=== PATIENT | female | born 1990 | race Caucasian/White ===

== ENCOUNTER 2018-02-22 17:18 | Emergency (ER) | payer OTHER ==
[~2018-02-22] VITALS: Wt 63.5 kg
[2018-02-22 18:14] LABS: BASO % 0.2 % (0.0-1.0); EOS # 0.1 10*3/uL (0.0-0.4); EOS % 1.6 % (1.0-4.0); HEMATOCRIT 41.2 % (37.0-47.0); HEMOGLOBIN 13.7 g/dl (12.0-16.0); LYMPH # 1.6 10*3/uL (1.3-4.4); LYMPH % 19.1 % (27.0-41.0); MEAN CELL VOLUME 94.3 fl (81.0-99.0); MEAN CORPUSCULAR HGB 31.4 pg (27.0-31.0); MEAN CORPUSCULAR HGB CONC 33.3 g/dl (33.0-37.0); MONO # 0.6 10*3/uL (0.1-1.0); MONO % 7.3 % (3.0-9.0); NEUT # 5.9 10*3/uL (2.3-7.9); NEUT % 71.6 % (47.0-73.0); PLATELET COUNT AUTOMATED 198 10*3/uL (130-400); RED BLOOD COUNT 4.37 10*6/uL (4.10-5.10); RED CELL DISTRI WIDTH 12.8 % (0-14.5); WHITE BLOOD COUNT 8.3 10*3/uL (4.8-10.8)
[2018-02-22 18:17] LABS: BILIRUBIN NEGATIVE (NEGATIVE); BLOOD NEGATIVE (NEGATIVE); CLARITY CLEAR (CLEAR); COLOR YELLOW (YELLOW); GLUCOSE NEGATIVE (NEGATIVE); KETONE NEGATIVE (NEGATIVE); LEUKO ESTERASE NEGATIVE (NEGATIVE); NITRITE NEGATIVE (NEGATIVE); PH 7.5 (5.0-9.0); UROBILINOGEN 0.2 E.U./dl (0.2-1.0)
[2018-02-22 18:23] LABS: WBC 0-2 wbc/hpf (0-5)
[2018-02-22 18:27] LABS: ALBUMIN 4.1 gm/dl (3.1-4.5); ALKALINE PHOSPHATASE 24 U/L (45-117); BUN 9 mg/dl (7-24); CHLORIDE 107 mmol/L (98-107); CREATININE 0.71 mg/dL (0.55-1.02); LIPASE 149 U/L (73-393); POTASSIUM 3.6 mmol/L (3.5-5.1); SGOT/AST 16 IU/L (3-35); SGPT/ALT 18 U/L (12-78); SODIUM 141 mmol/L (136-145); TOTAL PROTEIN 7.9 gm/dL (6.4-8.2)
[2018-02-22] MEDS ORDERED: PREDNISONE20 M1 PO (20:06)
[2018-02-22] MEDS ORDERED: HYCODAN/HYDROMET5 ML PO (20:06)
[2018-02-22] MEDS ORDERED: XOPENEX1.25 MG/3 INH (20:06)
[2018-02-22] MEDS ORDERED: TESSALON PERLE100 M1 PO (20:06)
== END 2018-02-22 20:31 | disposition home or self-care (01) ==
LOC: ED 17:18
PROVIDERS: Physician Assistant
DX: J40 Bronchitis, not specified as acute or chronic (principal); B34.9 Viral infection, unspecified; Z91.040 Latex allergy status; Z98.890 Other specified postprocedural states

== ENCOUNTER 2018-02-28 20:21 | Inpatient (IN) | payer OTHER ==
[~2018-02-28] VITALS: Ht 160 cm; Wt 60.4 kg
--- NOTE | ~2018-02-28 | PR ---
[place], [place] PROGRESS NOTE [id number] UN[facility] #: [id number] ROOM: 411 DOCTOR: RYAN BURGESS DO BIRTHDATE: [birth year] DOS: 03/03/2018 SUBJECTIVE: The patient was seen and examined at the bedside. The patient denies fevers, chills, abdominal pain, vomiting or any changes in bowel or bladder habits. She does complain of continuing nonproductive cough as well as nausea. She states that she experiences left rib pain when she does cough, but states that her shortness of breath is improving overall. She is requesting discharge today. OBJECTIVE: VITAL SIGNS: Temperature 97.6 degrees Fahrenheit, heart rate 88, respiratory rate 18, blood pressure 115/68, pulse oximetry 98% on room air. GENERAL APPEARANCE: The patient was awake, alert, responsive, cooperative and in no acute distress. HEENT: Head was normocephalic and atraumatic without any lesions or ulcerations noted to the eyes. NECK: Trachea appeared midline. HEART: Positive S1 and S2 sounds were heard, regular rate and rhythm were noted. No murmurs, rubs or gallops were appreciated. Bilateral lower extremities are without pitting edema. PULMONARY: Lungs were clear to auscultation bilaterally. No rales, rhonchi or wheezing was appreciated. ABDOMEN: Soft and nontender to palpation, nondistended, bowel sounds were auscultated. EXTREMITIES: Bilateral lower extremities were without pitting edema. No clubbing, cyanosis or erythema was noted. LABORATORY DATA: CBC from today shows white count at 14.2, hemoglobin at 11.9, hematocrit at 37.3, platelets at 269. Chemistries from today show sodium at 140, potassium at 4.2, chloride at 105, bicarbonate at 28, BUN at 15, creatinine at 0.75, glucose at 73, calcium at 8.6. Serologies for urine legionella antigen, strep pneumo, urinary antigen, viral panel, mycoplasma pneumonia are all pending. In terms of microbiology, blood cultures are without any bacterial growth. Sputum culture has not been obtained. IMAGING: In terms of imaging studies, a chest x-ray obtained today showed grossly clear lungs. IMPRESSION: 1. Acute exacerbation of asthma with consideration for concurrent atypical pneumonia or viral infection. 2. History of tobacco abuse. 3. Leukocytosis, which is improving. 4. Normocytic anemia. PLAN OF MANAGEMENT: From a pulmonary standpoint, the patient is stable for discharge at this time. It is recommended that she be discharged on 3 more days of oral azithromycin as well as a steroid taper. [place], [place] PROGRESS NOTE NAME: ABDI PATEL UNIT #: [id number] ROOM: 411 DOCTOR: RYAN BURGESS DO BIRTHDATE: [birth year] Ryan Burgess DO LAUREL RDZ MD CM:GONZALO [id number] RYAN BURGESS DO 03/03/18 1027 interface
--- NOTE | ~2018-02-28 | PR ---
[place], [place] PROGRESS NOTE NAME: ABDI PATEL UNIT #: [id number] ROOM: 411 DOCTOR: RYAN BURGESS DO BIRTHDATE: [birth year] DOS: 03/02/2018 SUBJECTIVE: The patient was seen and examined at the bedside. She denies any nausea, vomiting, abdominal pain or any changes in bowel or bladder habits. She does report that she feels miserable and attributes this to being on glucocorticoids. She admits to intolerance to heat and sleeping poorly, but overall feels that her breathing status is improved. Her shortness of breath is improved. She is having an occasional cough, which remains nonproductive, but she feels as her current treatments are breaking of her mucus. The patient reports that she wishes to go home. OBJECTIVE: VITAL SIGNS: Temperature at 97.9 degrees Fahrenheit, heart rate at 88, respiratory rate at 18, blood pressure at 121/79, pulse oximetry at 100% on room air. GENERAL APPEARANCE: The patient was awake, alert, responsive, cooperative and in no acute distress. HEENT: Head was normocephalic and atraumatic without any lesions or ulcerations noted to the eyes. NECK: Trachea appeared midline. HEART: Positive S1 and S2 sounds were heard. Regular rate and rhythm were noted. No murmurs, rubs or gallops were appreciated. Bilateral lower extremities were without pitting edema. PULMONARY: Lungs are clear to auscultation bilaterally. No rhonchi, rales or wheezing was heard. ABDOMEN: Soft and nontender to palpation. Bowel sounds were auscultated. Abdomen was nondistended. EXTREMITIES: Bilateral lower extremities were without pitting edema. No clubbing, cyanosis or erythema was noted. LABORATORY DATA: CBC from today shows white count at 17.5, hemoglobin at 11.5, hematocrit at 35.9 and platelets at 279. Chemistries from today show sodium at 143, potassium at 4.4, chloride at 109, bicarbonate at 25, BUN at 12, creatinine at 0.66, glucose at 104 and calcium at 8.5. SEROLOGY: Urine legionella antigen as well as urinary strep pneumo antigen are pending. A viral panel as well as testing for mycoplasma pneumonia antibodies are also pending. MICROBIOLOGY: Blood cultures obtained on admission are pending. A flu swab obtained yesterday was negative for flu A or flu B. IMPRESSION: 1. Acute exacerbation of asthma with consideration for a concurrent atypical pneumonia or viral infection. 2. History of tobacco abuse. 3. Leukocytosis. 4. Normocytic anemia. 5. Lymphopenia. 6. Hyperchloremia. [place], [place] PROGRESS NOTE NAME: ABDI PATEL UNIT #: [id number] ROOM: 411 DOCTOR: RYAN BURGESS DO BIRTHDATE: [birth year] 7. Hyperglycemia. PLAN OF MANAGEMENT: The patient at this time remains on IV Rocephin, IV azithromycin, Mucinex, bronchodilator therapy as well as Solu-Medrol. The frequency of her Solu-Medrol will be decreased to Solu-Medrol 40 mg once a day. Again, serology for urinary Legionella antigen, strep pneumo urinary antigen, viral testing as well as mycoplasma pneumonia antibodies are pending. A repeat chest x-ray as well as a CBC will be ordered for tomorrow as well. Blood cultures and sputum cultures are also pending. Ryan Burgess DO LAUREL RDZ MD CM:PNASH [id number] RYAN BURGESS DO 03/02/18 1241 interface
--- NOTE | ~2018-02-28 | EKG ---
[place], [place] ELECTROCARDIOGRAM REPORT NAME: ABDI PATEL UNIT #: [id number] ROOM: 411 DOCTOR: SHALINI DRAFT REPORT BIRTHDATE: [birth year] [facility] Test Date: 2018-02-28 Test Time: 21:45:23 Pat Name: ABDI PATEL Department: Room: [facility] Gender: F Semaphore Operator: ESTEBAN : 1990 Requested By: ANAHI ODEN Order Number: [id number] Reading MD: New Kelley MD Measurements Intervals [place] Rate: 99 P: 79 [place]: 136 QRS: 72 QRSD: 77 T: 56 QT: 331 QTc: 425 Interpretive Statements Sinus rhythm Electronically Signed On 03-01-2018 11:54:59 PDT by New Kelley MD CM:EKGRPT:ELECTROCARDIOGRAM REPORT 1154 ANAHI ODEN EPIPHANY DRAFT REPORT ANAHI ODEN
--- NOTE | ~2018-02-28 | PR ---
[place], [place] PROGRESS NOTE NAME: ABDI PATEL UNIT #: [id number] ROOM: 411 DOCTOR: KAJAL COTTRELL MD,LAUREL BIRTHDATE: [birth year] DOS: 03/02/2018 SUBJECTIVE: The patient has been seen and examined, [id number] encounter, history was confirmed. Physical examination performed. The review of the assessment and management was personally completed. The patient was still noted symptoms of shortness of breath, which has been decreased. She remains afebrile. Denies any symptoms of chest pain or hemoptysis. Coughing has been subsiding. Denies symptoms of nausea or vomiting. OBJECTIVE: VITAL SIGNS: Shows a normal temperature, respiratory rate 18, heart rate 94, blood pressure 104/59. Pulse ox saturation on room air 98% saturation. HEENT: No acute change. NECK: Supple. CARDIOVASCULAR: S1, S2 is audible. LUNGS: Noted without any wheezing or crackles today. ABDOMEN: Soft, nontender. Bowel sounds present. EXTREMITIES: Noted without any acute edema. LABORATORY DATA: CBC was noted with elevated white cell count for normal white cell count today noted as 17.5. BNP noted as normal. IMPRESSION: Basilar pneumonia, which has been currently treated at this time with an acute exacerbation of bronchial asthma as well. PLAN OF MANAGEMENT: Repeat CBC in the morning to reassess the WBC count trend. Decrease Solu-Medrol 40 mg daily. Bronchodilators to be continued. Continue current antibiotic. No changes. Other supportive therapy, plan of management with the note done by the medical assembler was approved. LAUREL RDZ MD CM:PNTRANS [id number] LAUREL COTTRELL MD 03/02/18 1334 interface
--- NOTE | ~2018-02-28 | CON ---
[place], [place] REPORT OF CONSULTATION NAME: ABDI PATEL UNIT #: [id number] ROOM: 411 DOCTOR: KAJAL COTTRELL MDLAUREL BIRTHDATE: [birth year] DOS: 03/01/2018 PULMONARY CONSULTATION, EVALUATION, AND MANAGEMENT CONSULTATION REQUESTED BY: Hospitalist services. REASON FOR CONSULTATION: Assessment of current abnormal chest x-ray with acute pneumonia. HISTORY OF PRESENT ILLNESS: This is a 27-year-old white female who was independently seen and examined in [id number] encounter, history was confirmed. Physical examination performed. All the labs including radiology data reviewed for the patient's consultation, assessment and management personally completed in today's visit. Note done by the biomedical analytical scientist for this consultation was approved as well. The patient presented to the hospital as she has been noted with symptoms of flu-like symptoms for few days. She presented to the Emergency Room recently and noted with URI symptom and was prescribed steroids, bronchodilators and nebulizer treatment. The patient was sent home. The patient presented back to the Emergency Room after initial assessment on 02/22/2018. She stated that shortness of breath has got significantly worse with increased coughing and chest congestion. The patient came in the Emergency Room for assessment. She has a chest x-ray done and CT of the chest completed as well. She has been currently admitted to the hospital for presumed medical management of pneumonia. She does admit symptoms of wheezing that occurs with exertion with recurrent symptoms as well. Coughing has been noted mostly nonproductive and minimal sputum expectoration at time. Shortness of breath occurred with moderate exertion. Tightness in the chest was noted with nonspecific chest pain. REVIEW OF SYSTEMS: Completed by the biomedical analytical scientist was approved. PAST MEDICAL HISTORY: The patient noted with history of mild intermittent bronchial asthma where she noted at the time of the acute flareup. History of irritable bowel syndrome. PAST SURGICAL HISTORY: 1. Tonsillectomy. 2. Colonoscopy and upper endoscopy. SOCIAL HISTORY: The patient is single. She has 2 children. The patient reported symptoms of tobacco use since early teens at 1/3 of pack of cigarettes per day. History of illicit drug use. The patient does drink alcohol socially. FAMILY HISTORY: Reported history of bronchial asthma in the mother and father. History was noted essentially normal. HOME MEDICATIONS: P.r.n. use of the albuterol sulfate. There was recent prescription of steroids and nebulized bronchodilators and short acting bronchodilators were also reported. [place], [place] REPORT OF CONSULTATION NAME: ABDI PATEL UNIT #: [id number] ROOM: 411 DOCTOR: KAJAL COTTRELL MD,[facility] BIRTHDATE: [birth year] DRUG ALLERGIES: Noted as no known allergies. PHYSICAL EXAMINATION: GENERAL: A 27-year-old female patient who has been currently noted to be awake and alert without any acute distress, sitting on the bed. Height of 5 feet 3 inches, weight of 133 pounds, BMI 23.6. VITAL SIGNS: The patient's temperature noted normal. She was noted on 101.6 degrees Fahrenheit while the patient has been emergency on of this month. The heart rate of the patient noted as 72. The blood pressure is 102/67-114/77. The pulse oxygen saturation of the patient room air was 99% saturation. HEENT: Examination shows head was atraumatic. Eyes nonicterus. NECK: Supple. CARDIOVASCULAR: S1, S2 is audible. LUNGS: There was no wheezing or crackles heard at this time. Mildly diminished bilateral breath sounds. ABDOMEN: Soft and nontender. Bowel sounds present. EXTREMITIES: Without acute edema. SKIN: No lesions or rashes. CENTRAL NERVOUS SYSTEM: The patient noted nonfocal. MUSCULOSKELETAL: Without any acute deformities. LABORATORY DATA: The lactic acid that was done on this patient yesterday was noted as normal. The CBC of the patient yesterday, WBC count 15.2, remaining CBC normal. Blood culture from the of this month, no bacterial growth, final results were reported. CMP of the patient that was done on 02/28/2018 admission, potassium 3.3. Other electrolytes grossly normal. Normal troponin and LFTs. Chest x-ray that was done on 02/22/2018 was noted without any acute infiltration. Chest x-ray that was done on 02/28/2018 does not show any visible pulmonary infiltration, consolidation. CTA of the chest does not show evidence of pulmonary embolism, which was personally reviewed. Small rounded area of ground glass opacity present predominantly in the lower lungs, patient's right and the left lung. There was no lymphadenopathy, pleural effusions or other abnormalities. IMPRESSION: 1. The patient who has been currently admitted to the hospital was noted with symptoms of acute shortness of breath that started with worsening possibly atypical pneumonia would be considered. Other differential of the patient's ground glass opacity would be considered viral infection and others. 2. Acute exacerbation of bronchial asthma and asthmatic bronchitis as well. 3. History of chronic nicotine abuse. PLAN OF MANAGEMENT: The urine for Legionella antigen and strep antigen was ordered. The patient will be also ordered nasopharyngeal wall other viral assessment with that. The influenza viral testing will be redone again for the patient to exclude any viral illness because of the current season. Mycoplasma pneumonia antibody for the patient will be ordered as well. Monitoring of the respiratory status currently. Coverage for atypical infection will be continued. Additional treatment changes will be done for the patient based on the progression of the illness. The cough has been noted nonproductive, so the [place], [place] REPORT OF CONSULTATION NAME: ABDI PATEL UNIT #: [id number] ROOM: 411 DOCTOR: LAUREL LEON MD BIRTHDATE: [birth year] sputum Gram stain culture could not be sent to the lab. Other plan of therapy and management to be continued. Tobacco cessation was addressed with the patient. LAUREL RDZ MD CM:CONSTR:REPORT OF CONSULTATION 1302 03/14/18 0809 interface
--- NOTE | ~2018-02-28 | CON ---
[place], [place] REPORT OF CONSULTATION NAME: ABDI PATEL UNIT #: [id number] ROOM: 411 DOCTOR: RYAN BURGESS DO BIRTHDATE: [birth year] DOS: 03/01/2018 REQUESTING PHYSICIAN: Hospitalist service. REASON FOR CONSULTATION: Asthma exacerbation and pneumonia. HISTORY OF PRESENT ILLNESS: The patient is a 27-year-old female who presented to the ED on 03/01/2018 due to pleuritic pain and ongoing cold symptoms. She states that she has been experiencing cold symptoms for at least the past 2 weekends and due to increased coughing she presented to the Emergency Department initially on 02/22/2018. At that time, she was diagnosed with a viral bronchitis and she was discharged home with prescriptions for Xopenex, prednisone, Tessalon Perles and cough medication. The patient's symptoms failed to improve and due to increased fatigue, she again represented to the ED on the . A chest x-ray obtained in the ED showed no acute cardiopulmonary disease and a subsequent CTA of the chest demonstrated no pulmonary embolism, but it did show multiple ground glass airspace foci to the bilateral lower lobes, favoring a diagnosis from an infectious etiology. The patient was subsequently admitted to the general medical floor with telemetry monitoring for treatment. The patient admits to wheezing and a dry cough. She also is experiencing chest pain with coughing and admits to fevers. She admits to a history of asthma and states that she last followed with an steam table associate as well as a advertising copywriter in [place] and when she was 18 or 19 years old. She currently is not taking any medications for her asthma. The Pulmonary Medicine Service was consulted for evaluation of the patient's asthma exacerbation and suspected pneumonia. PAST MEDICAL HISTORY: Includes asthma, irritable bowel syndrome. PAST SURGICAL HISTORY: Includes history of tonsillectomy, history of EGD, history of colonoscopy. SOCIAL HISTORY: The patient states that she last smoked at the beginning of February and had been smoking one-third pack a day. She denies any use of illicit drugs. She admits to occasional consumption of alcohol. She is currently engaged and has 2 children. FAMILY HISTORY: The patient's mother has a history of asthma and she is age 46, history for the patient's father is unknown. ALLERGIES: LATEX. CURRENT MEDICATIONS: These includes: Levalbuterol nebulizer every 6 hours, IV Rocephin 1 gram daily, IV azithromycin 500 mg daily, guaifenesin 1200 mg every 12 hours. IV Solu-Medrol 40 mg twice a day, Lovenox 40 mg subcutaneous daily, Toradol IV 15 mg every 6 hours as needed for pain. REVIEW OF SYSTEMS: GENERAL: Admits to fevers, denies chills. HEENT: Denies changes to vision changes, changes to hearing, eye pain, ear pain, dysphagia. [place], [place] REPORT OF CONSULTATION NAME: ABDI PATEL UNIT #: [id number] ROOM: 411 DOCTOR: RYAN BURGESS DO BIRTHDATE: [birth year] CARDIOVASCULAR: Admits to chest pain with coughing. Denies palpitations. Denies diaphoresis. RESPIRATORY: Admits to shortness of breath, dyspnea on exertion, wheezing, dry cough. ABDOMINAL: Denies nausea, vomiting, diarrhea, melena or hematochezia. GENITOURINARY: Denies dysuria, hematuria, increased urinary frequency or urgency. NEUROLOGICAL: Denies lightheadedness or dizziness. PSYCHOLOGICAL: Denies anxiety, depression or substance abuse. ENDOCRINE: Admits to intolerance to heat, denies intolerance to cold. SKIN: Denies any new rashes, ulcers, or lesions. PHYSICAL EXAMINATION: VITAL SIGNS: Show temperature at 98.5 degrees Fahrenheit, heart rate at 72, respiratory rate at 18, blood pressure 103/64, pulse oximetry 100% on room air. GENERAL APPERANCE: The patient is awake, alert, responsive, cooperative and in no acute distress. HEENT: Head is normocephalic and atraumatic. There are no lesions or ulcerations to the eyes. NECK: Trachea appears midline. HEART: Positive S1 and S2 sounds were heard, regular rate and rhythm noted. No murmurs, rubs or gallops were appreciated. Bilateral lower extremities were without pitting edema. PULMONARY: Lungs were clear to auscultation bilaterally. No rhonchi, rales or wheezing was heard. ABDOMEN: Soft and nontender to palpation. Bowel sounds are auscultated. Abdomen was nondistended. EXTREMITIES: Bilateral lower extremities were without pitting edema. No clubbing, cyanosis or erythema was noted. NEUROLOGIC: The patient was grossly without any focal neurologic deficits. Cranial nerves 2-12 were intact. PSYCHOLOGICAL: The patient was with a normal mood and normal affect. She was a good historian. SKIN: Warm and dry without any ulcerations, indurations or erythema. LABORATORY STUDIES: CBC from today shows white count at 10.3, hemoglobin at 12.1, hematocrit at 37.6, platelets at 257. Coagulation studies show PT at 10.4, INR at 1.0, activated PTT at 22.7. Chemistries from today shows sodium at 140, potassium at 4.3, chloride at 107, bicarbonate 26, BUN at 8, creatinine at 0.70, glucose at 142. Hemoglobin A1c at 5.3, calcium at 8.2, phosphorus at 4.1, magnesium at 2.0. Lipid panel was unremarkable. Vitamin B12 348, vitamin D 19.7, folate 5.64. TSH 0.648, free T4 1.29. For microbiology, blood cultures obtained on admission are still pending. IMAGING STUDIES: Chest x-ray from 02/28/2018 showed no acute cardiopulmonary disease. CTA of the chest with contrast obtained on 09/28/2017 showed no pulmonary embolism, but did demonstrate multiple ground glass airspace foci in the bilateral lower lobes, favoring an infectious process. No effusion was seen. [place], [place] REPORT OF CONSULTATION NAME: ABDI PATEL UNIT #: [id number] ROOM: 411 DOCTOR: RYAN BURGESS DO BIRTHDATE: [birth year] IMPRESSION: 1. Sepsis secondary to pneumonia. 2. Acute exacerbation of asthma. 3. Failure of outpatient treatment. 4. Tachycardia. 5. Leukocytosis, resolved. 6. Lymphopenia. 7. Hyperglycemia. 8. Vitamin D deficiency. 9. History of tobacco abuse. PLAN OF MANAGEMENT: The patient remains on IV Rocephin, IV azithromycin, Solu-Medrol, Mucinex and bronchodilator therapy. Blood cultures and sputum cultures are pending. Respiratory virus profile, rapid flu and screening for Mycoplasma pneumoniae has been also ordered. Pulmonary Medicine will continue to follow up. Ryan Burgess DO LAUREL RDZ MD CM:CONSTR:REPORT OF CONSULTATION 1327 03/01/18 1425 interface
--- NOTE | ~2018-02-28 | PR ---
[place], [place] PROGRESS NOTE NAME: ABDI PATEL UNIT #: [id number] ROOM: 411 DOCTOR: KAJAL COTTRELL MD,LAUREL BIRTHDATE: [birth year] DOS: 03/03/2018 SUBJECTIVE: The patient independently seen and examined, [id number] encounter, history was confirmed. Physical examination performed. Labs reviewed. The assessment and management of the patient today was made for the visit. Note done by the medical record specialist approved. The patient continued to show improvement and resolution of the acute respiratory symptoms. Noted without any coughing, wheezing, chest pain or other symptoms. PHYSICAL EXAMINATION: VITAL SIGNS: Reviewed noted as normal vital signs. Pulse oxygen saturation on room air was noted as 98% saturation. LUNGS: Noted clear. ABDOMEN: Soft, nontender. Bowel sounds present. EXTREMITIES: Without any edema. LABORATORY DATA: BMP was normal today. CBC: WBC count decreased from 17,000 to 14.2. Chest x-ray was done this morning was reviewed and does not show an acute pulmonary infiltration. IMPRESSION: Resolving acute pneumonia in the lower lungs atypical for the patient's current medical management, progressive exacerbation of bronchial asthma. PLAN OF TREATMENT: The patient could be discharged home whenever desired on oral medications. Tobacco use suspension was strongly recommended to the patient. LAUREL RDZ MD CM:PNTRANS [id number] LAUREL COTTRELL MD 03/14/18 0811 interface
[~2018-02-28 20:21] MED LIST: HYCODAN/HYDROMET5 ML PO; PREDNISONE20 M1 PO; TESSALON PERLE100 M1 PO; XOPENEX1.25 MG/3 INH
[2018-02-28 20:24] VITALS: BP 135/83
[2018-02-28 21:42] VITALS: BP 125/81
[2018-02-28 21:54] LABS: BASO % 0.1 % (0.0-1.0); EOS % 0.2 % (1.0-4.0); HEMOGLOBIN 13.7 g/dl (12.0-16.0); LYMPH # 4.8 10*3/uL (1.3-4.4); LYMPH % 31.3 % (27.0-41.0); MEAN CELL VOLUME 94.8 fl (81.0-99.0); MEAN CORPUSCULAR HGB 30.9 pg (27.0-31.0); MEAN CORPUSCULAR HGB CONC 32.6 g/dl (33.0-37.0); MEAN PLATELET VOLUME 9.6 fl (9.6-12.3); MONO # 0.9 10*3/uL (0.1-1.0); MONO % 6.2 % (3.0-9.0); NEUT # 9.3 10*3/uL (2.3-7.9); NEUT % 61.3 % (47.0-73.0); PLATELET COUNT AUTOMATED 285 10*3/uL (130-400); RED BLOOD COUNT 4.43 10*6/uL (4.10-5.10); WHITE BLOOD COUNT 15.2 10*3/uL (4.8-10.8)
[2018-02-28 22:13] LABS: ALBUMIN 3.3 gm/dl (3.1-4.5); ALKALINE PHOSPHATASE 33 U/L (45-117); BUN 7 mg/dl (7-24); CHLORIDE 109 mmol/L (98-107); CREATININE 0.79 mg/dL (0.55-1.02); POTASSIUM 3.3 mmol/L (3.5-5.1); SGOT/AST 14 IU/L (3-35); SGPT/ALT 26 U/L (12-78); SODIUM 145 mmol/L (136-145); TOTAL PROTEIN 6.7 gm/dL (6.4-8.2); TROPONIN I < 0.015 ng/ml (<0.045)
[2018-02-28 22:50] LABS: BILIRUBIN NEGATIVE (NEGATIVE); BLOOD NEGATIVE (NEGATIVE); CLARITY CLEAR (CLEAR); COLOR YELLOW (YELLOW); GLUCOSE NEGATIVE (NEGATIVE); KETONE TRACE (NEGATIVE); LEUKO ESTERASE NEGATIVE (NEGATIVE); NITRITE NEGATIVE (NEGATIVE); UROBILINOGEN 0.2 E.U./dl (0.2-1.0)
[2018-02-28 23:37] LABS: BACTERIA TRACE; EPITHELIAL CELLS 30-35; MUCOUS TRACE
[2018-02-28 23:49] VITALS: BP 123/84
[2018-03-01 00:30] VITALS: BP 114/77
[2018-03-01 04:00] VITALS: BP 110/73
[2018-03-01 06:26] LABS: BASO % 0.1 % (0.0-1.0); HEMATOCRIT 37.6 % (37.0-47.0); HEMOGLOBIN 12.1 g/dl (12.0-16.0); LYMPH % 9.3 % (27.0-41.0); MEAN CELL VOLUME 95.2 fl (81.0-99.0); MEAN CORPUSCULAR HGB 30.6 pg (27.0-31.0); MEAN CORPUSCULAR HGB CONC 32.2 g/dl (33.0-37.0); MEAN PLATELET VOLUME 9.7 fl (9.6-12.3); MONO # 0.1 10*3/uL (0.1-1.0); MONO % 1.2 % (3.0-9.0); NEUT # 9.1 10*3/uL (2.3-7.9); NEUT % 88.7 % (47.0-73.0); PLATELET COUNT AUTOMATED 257 10*3/uL (130-400); RED BLOOD COUNT 3.95 10*6/uL (4.10-5.10); RED CELL DISTRI WIDTH 12.9 % (0-14.5); WHITE BLOOD COUNT 10.3 10*3/uL (4.8-10.8)
[2018-03-01 06:32] LABS: BUN 8 mg/dl (7-24); CHLORIDE 107 mmol/L (98-107); CHOLESTEROL 123 mg/dL (<200); HDL CHOLESTEROL 60 mg/dl (40-60); PHOSPHOROUS 4.1 mg/dL (2.5-4.9); SODIUM 140 mmol/L (136-145)
[2018-03-01 06:37] LABS: ACT PARTIAL THROMBO TIME 22.7 SECONDS (20.8-31.5)
[2018-03-01 06:46] LABS: FREE T4 1.29 ng/dl (0.76-1.46); LDL CHOLESTEROL 53 mg/dL (9-159); THYROID STIM HORMONE (HS) 0.648 uIU/ml (0.358-4.75); TRIGLYCERIDES 51 mg/dl (<150); VLDL CHOLESTEROL 10 mg/dL (6-40)
[2018-03-01 06:47] LABS: POTASSIUM 4.3 mmol/L (3.5-5.1)
[2018-03-01 07:32] LABS: VITAMIN D, 25-HYDROXY 19.7 ng/mL (30-100)
[2018-03-01 08:00] VITALS: BP 103/67
[2018-03-01 12:00] VITALS: BP 117/74
[2018-03-01 16:00] VITALS: BP 125/87
[2018-03-01 20:00] VITALS: BP 117/88
[2018-03-02] VITALS: BP 99/54
[2018-03-02 06:45] LABS: BUN 12 mg/dl (7-24); CHLORIDE 109 mmol/L (98-107); CREATININE 0.66 mg/dL (0.55-1.02); POTASSIUM 4.4 mmol/L (3.5-5.1); SODIUM 143 mmol/L (136-145)
[2018-03-02 06:51] LABS: BASO % 0.1 % (0.0-1.0); HEMATOCRIT 35.9 % (37.0-47.0); HEMOGLOBIN 11.5 g/dl (12.0-16.0); LYMPH # 1.9 10*3/uL (1.3-4.4); LYMPH % 10.7 % (27.0-41.0); MEAN CELL VOLUME 95.2 fl (81.0-99.0); MEAN CORPUSCULAR HGB 30.5 pg (27.0-31.0); MONO # 1.2 10*3/uL (0.1-1.0); NEUT # 14.2 10*3/uL (2.3-7.9); NEUT % 81.1 % (47.0-73.0); PLATELET COUNT AUTOMATED 279 10*3/uL (130-400); RED BLOOD COUNT 3.77 10*6/uL (4.10-5.10); RED CELL DISTRI WIDTH 13.2 % (0-14.5); WHITE BLOOD COUNT 17.5 10*3/uL (4.8-10.8)
[2018-03-02 08:00] VITALS: BP 121/79
[2018-03-02 12:00] VITALS: BP 104/59
[2018-03-02 16:00] VITALS: BP 110/76
[2018-03-02 20:00] VITALS: BP 111/75
[2018-03-03] VITALS: BP 115/82
[2018-03-03 06:53] LABS: BASO % 0.1 % (0.0-1.0); EOS % 0.1 % (1.0-4.0); HEMATOCRIT 37.3 % (37.0-47.0); HEMOGLOBIN 11.9 g/dl (12.0-16.0); LYMPH # 4.2 10*3/uL (1.3-4.4); LYMPH % 29.9 % (27.0-41.0); MEAN CELL VOLUME 96.4 fl (81.0-99.0); MEAN CORPUSCULAR HGB 30.7 pg (27.0-31.0); MEAN CORPUSCULAR HGB CONC 31.9 g/dl (33.0-37.0); MEAN PLATELET VOLUME 9.4 fl (9.6-12.3); MONO # 0.9 10*3/uL (0.1-1.0); MONO % 6.1 % (3.0-9.0); NEUT # 8.9 10*3/uL (2.3-7.9); NEUT % 62.7 % (47.0-73.0); PLATELET COUNT AUTOMATED 269 10*3/uL (130-400); RED BLOOD COUNT 3.87 10*6/uL (4.10-5.10); RED CELL DISTRI WIDTH 13.5 % (0-14.5); WHITE BLOOD COUNT 14.2 10*3/uL (4.8-10.8)
[2018-03-03 07:24] LABS: BUN 15 mg/dl (7-24); CHLORIDE 105 mmol/L (98-107); CREATININE 0.75 mg/dL (0.55-1.02); POTASSIUM 4.2 mmol/L (3.5-5.1); SODIUM 140 mmol/L (136-145)
[2018-03-03 08:00] VITALS: BP 115/68
[2018-03-03] MEDS ORDERED: PREDNISONE10 MG PO (09:17)
[2018-03-03] MEDS ORDERED: ZITHROMAX500 MG PO (09:17)
[2018-03-03 16:08] LABS: MYCOPLASMA PNEUMONIAE IGG 231 U/mL (0-99); MYCOPLASMA PNEUMONIAE IGM <770 U/mL (0-769)
[2018-03-04 00:06] LABS: ADENOVIRUS Negative (Negative); INFLUENZA A Negative (Negative); INFLUENZA B Negative (Negative); METAPNEUMOVIRUS Negative (Negative); PARAINFLUENZA 1 Negative (Negative); PARAINFLUENZA 2 Negative (Negative); PARAINFLUENZA 3 Negative (Negative); RHINOVIRUS Negative (Negative); RSV A Negative (Negative); RSV B Negative (Negative)
== END 2018-03-03 11:48 | disposition home or self-care (01) | DRG 871 ==
LOC: ED 20:21 → 4E 23:12 → EDHOLD 23:12 → 4E 23:25
PROVIDERS: Internal Medicine; Internal Medicine Critical Care Medicine; Internal Medicine Nephrology; Nurse Practitioner
DX: A41.9 Sepsis, unspecified organism (principal); J18.9 Pneumonia, unspecified organism; J45.21 Mild intermittent asthma with (acute) exacerbation; J40 Bronchitis, not specified as acute or chronic; E55.9 Vitamin D deficiency, unspecified; E87.6 Hypokalemia; E87.8 Other disorders of electrolyte and fluid balance, not elsewhere classified; K58.0 Irritable bowel syndrome with diarrhea; D64.9 Anemia, unspecified; R73.9 Hyperglycemia, unspecified; Z79.899 Other long term (current) drug therapy; Z90.89 Acquired absence of other organs; Z91.040 Latex allergy status; Z87.891 Personal history of nicotine dependence; Z82.5 Family history of asthma and other chronic lower respiratory diseases

== ENCOUNTER 2019-11-06 17:30 | Emergency (ER) | payer OTHER ==
[~2019-11-06] VITALS: Ht 160 cm; Wt 54.0 kg
[~2019-11-06 17:30] MED LIST changes: +PREDNISONE10 MG PO; +ZITHROMAX500 MG PO
[2019-11-06 18:13] LABS: BASO % 0.4 % (0.0-1.0); EOS # 0.1 10*3/uL (0.0-0.4); EOS % 0.8 % (1.0-4.0); HEMATOCRIT 41.2 % (37.0-47.0); LYMPH # 2.2 10*3/uL (1.3-4.4); LYMPH % 30.4 % (27.0-41.0); MEAN CELL VOLUME 95.2 fl (81.0-99.0); MEAN CORPUSCULAR HGB 31.6 pg (27.0-31.0); MEAN CORPUSCULAR HGB CONC 33.3 g/dl (33.0-37.0); MEAN PLATELET VOLUME 9.6 fl (9.6-12.3); MONO # 0.5 10*3/uL (0.1-1.0); MONO % 6.8 % (3.0-9.0); NEUT # 4.5 10*3/uL (2.3-7.9); NEUT % 61.3 % (47.0-73.0); PLATELET COUNT AUTOMATED 226 10*3/uL (130-400); RED BLOOD COUNT 4.33 10*6/uL (4.10-5.10); RED CELL DISTRI WIDTH 12.1 % (0-14.5); WHITE BLOOD COUNT 7.3 10*3/uL (4.8-10.8)
[2019-11-06 18:27] LABS: ALBUMIN 3.9 gm/dl (3.1-4.5); ALKALINE PHOSPHATASE 20 U/L (45-117); BUN 12 mg/dl (7-24); CHLORIDE 105 mmol/L (98-107); CREATININE 0.61 mg/dL (0.55-1.02); LIPASE 78 U/L (73-393); SGOT/AST 20 IU/L (3-35); SGPT/ALT 29 U/L (12-78); SODIUM 137 mmol/L (136-145); TOTAL PROTEIN 7.3 gm/dL (6.4-8.2)
[2019-11-06 19:35] LABS: BILIRUBIN NEGATIVE (NEGATIVE); CLARITY CLEAR (CLEAR); COLOR YELLOW (YELLOW); GLUCOSE NEGATIVE (NEGATIVE); KETONE 2+ (NEGATIVE)
[2019-11-06 19:36] LABS: BLOOD NEGATIVE (NEGATIVE); LEUKO ESTERASE NEGATIVE (NEGATIVE); NITRITE NEGATIVE (NEGATIVE); PH 6.5 (5.0-9.0); SPECIFIC GRAVITY 1.025 (1.005-1.030); UROBILINOGEN 0.2 E.U./dl (0.2-1.0)
[2019-11-06 19:37] LABS: BACTERIA 1+; EPITHELIAL CELLS 21-30; MUCOUS 2+; RBC 0-2 rbc/hpf (0-2); WBC 0-2 wbc/hpf (0-5)
[2019-11-06] MEDS ORDERED: REGLAN5 MG PO (20:55)
== END 2019-11-06 21:01 | disposition home or self-care (01) ==
LOC: ED 17:30
PROVIDERS: Nurse Practitioner Family
DX: O21.8 Other vomiting complicating pregnancy (principal); O99.512 Diseases of the respiratory system complicating pregnancy, second trimester; J45.909 Unspecified asthma, uncomplicated; Z3A.22 22 weeks gestation of pregnancy; Z79.899 Other long term (current) drug therapy

== ENCOUNTER 2020-03-11 13:52 | Emergency (ER) | payer OTHER ==
[~2020-03-11] VITALS: Wt 62.6 kg
[~2020-03-11 13:52] MED LIST changes: +REGLAN5 MG PO
[2020-03-11 15:24] LABS: BASO % 0.3 % (0.0-1.0); EOS # 0.2 10*3/uL (0.0-0.4); EOS % 1.4 % (1.0-4.0); HEMATOCRIT 36.2 % (37.0-47.0); LYMPH # 1.7 10*3/uL (1.3-4.4); LYMPH % 14.1 % (27.0-41.0); MEAN CELL VOLUME 98.1 fl (81.0-99.0); MEAN CORPUSCULAR HGB 31.4 pg (27.0-31.0); MONO # 0.8 10*3/uL (0.1-1.0); MONO % 6.9 % (3.0-9.0); NEUT % 76.4 % (47.0-73.0); PLATELET COUNT AUTOMATED 223 10*3/uL (130-400); RED BLOOD COUNT 3.69 10*6/uL (4.10-5.10); RED CELL DISTRI WIDTH 12.8 % (0-14.5); WHITE BLOOD COUNT 11.8 10*3/uL (4.8-10.8)
[2020-03-11 15:55] LABS: ALBUMIN 2.8 gm/dl (3.1-4.5); ALKALINE PHOSPHATASE 44 U/L (45-117); BUN 9 mg/dl (7-24); CHLORIDE 109 mmol/L (98-107); CREATININE 0.63 mg/dL (0.55-1.02); POTASSIUM 3.9 mmol/L (3.5-5.1); SGOT/AST 42 IU/L (3-35); SGPT/ALT 48 U/L (12-78); SODIUM 140 mmol/L (136-145); TOTAL PROTEIN 6.5 gm/dL (6.4-8.2)
[2020-03-11 17:15] LABS: BILIRUBIN Negative (Negative); BLOOD 3+ (Negative); CLARITY Turbid (Clear); COLOR Dark Yellow (Yellow); GLUCOSE Negative (Negative); KETONE 4+ (Negative); LEUKO ESTERASE 3+ (Negative); NITRITE Negative (Negative); PH 7.5 (4.5-8.0); SPECIFIC GRAVITY 1.025 (1.001-1.030)
[2020-03-11 17:32] LABS: EPITHELIAL CELLS 0-2; WBC TNTC wbc/hpf (0-5)
[2020-03-11 17:33] LABS: BACTERIA 3+; RBC TNTC rbc/hpf (0-2)
[2020-03-11] MEDS ORDERED: CEPHALEXIN500 M1 PO (17:47)
== END 2020-03-11 19:07 | disposition home or self-care (01) ==
LOC: ED 13:52
PROVIDERS: Nurse Practitioner Family
DX: O23.42 Unspecified infection of urinary tract in pregnancy, second trimester (principal); O21.8 Other vomiting complicating pregnancy; O26.892 Other specified pregnancy related conditions, second trimester; E86.0 Dehydration; O99.512 Diseases of the respiratory system complicating pregnancy, second trimester; J45.909 Unspecified asthma, uncomplicated; Z91.040 Latex allergy status; Z79.899 Other long term (current) drug therapy; Z3A.26 26 weeks gestation of pregnancy

== ENCOUNTER 2022-03-06 16:21 | Emergency (ER) | payer OTHER ==
[~2022-03-06] VITALS: Ht 160 cm; Wt 73.5 kg
[~2022-03-06 16:21] MED LIST changes: +CEPHALEXIN500 M1 PO
[2022-03-06 16:52] LABS: BASO % 0.3 % (0.0-1.0); EOS # 0.2 10*3/uL (0.0-0.4); EOS % 2.6 % (1.0-4.0); HEMATOCRIT 45.5 % (37.0-47.0); LYMPH # 1.3 10*3/uL (1.3-4.4); LYMPH % 19.6 % (27.0-41.0); MEAN CELL VOLUME 96.6 fl (81.0-99.0); MEAN CORPUSCULAR HGB 31.8 pg (27.0-31.0); MEAN PLATELET VOLUME 9.5 fl (9.6-12.3); MONO # 0.5 10*3/uL (0.1-1.0); MONO % 7.6 % (3.0-9.0); NEUT # 4.8 10*3/uL (2.3-7.9); NEUT % 69.6 % (47.0-73.0); PLATELET COUNT AUTOMATED 228 10*3/uL (130-400); RED BLOOD COUNT 4.71 10*6/uL (4.10-5.10); RED CELL DISTRI WIDTH 12.8 % (0-14.5); WHITE BLOOD COUNT 6.9 10*3/uL (4.8-10.8)
[2022-03-06 17:17] LABS: ALKALINE PHOSPHATASE 40 U/L (45-117); BUN 10 mg/dl (7-24); CHLORIDE 110 mmol/L (98-107); CREATININE 0.65 mg/dL (0.55-1.02); POTASSIUM 3.5 mmol/L (3.5-5.1); SGOT/AST 16 IU/L (3-35); SGPT/ALT 23 U/L (12-78); SODIUM 139 mmol/L (136-145); TOTAL PROTEIN 7.3 gm/dL (6.4-8.2)
[2022-03-06 17:39] LABS: BILIRUBIN Negative (Negative); BLOOD Trace-Lysed (Negative); CLARITY Cloudy (Clear); COLOR Yellow (Yellow); GLUCOSE Negative (Negative); KETONE Trace (Negative); LEUKO ESTERASE Trace (Negative); NITRITE Negative (Negative); PH 5.5 (4.5-8.0); SPECIFIC GRAVITY >= 1.030 (1.001-1.030)
[2022-03-06 18:03] LABS: MUCOUS 2+
[2022-03-06] MEDS ORDERED: AMOXICILLIN500 M3 PO (19:03)
[2022-03-06] MEDS ORDERED: ONDANSETRON4 MG SL (19:03)
[2022-03-06] MEDS ORDERED: IMODIUM A-D2 M2 PO (19:03)
[2022-03-06] MEDS ORDERED: METRONIDAZOLE500 M1 PO (19:03)
== END 2022-03-06 19:36 | disposition home or self-care (01) ==
LOC: ED 16:21
PROVIDERS: Nurse Practitioner Family
DX: K52.9 Noninfective gastroenteritis and colitis, unspecified (principal); R31.9 Hematuria, unspecified; Z91.040 Latex allergy status; Z90.89 Acquired absence of other organs; Z87.891 Personal history of nicotine dependence